=== PATIENT | male | born 1955 | race Caucasian/White ===

== ENCOUNTER 2019-02-26 12:42 | Day surgery (SDC) | payer OTHER, SELFPAY ==
[2019-02-20 15:06] VITALS: BMI 26.0
[2019-02-26] VITALS (8 sets, daily range): BP systolic 108–149; BP diastolic 69–91; PULSE 65–78; RESP 10–16; TEMP 36–36.8; O2SAT 94–98; BMI 25.6
[2019-02-26] MEDS: LACTATED RINGERS 1,000 ML 100 ML IV (13:22)
--- NOTE | 2019-02-26 14:09 | PM.HP.1 ---
History of Present Illness History of Present Illness Date Patient Seen: 02/26/19 Time Patient Seen: 14:09 Chief complaint: [id number] Narrative: The patient is a gentleman here for repair of a right inguinal hernia. It is intermittently symptomatic. Patient History Medical History Asthma (Acute) Kidney stones (Acute) Tibia/fibula fracture (Resolved ~2016) Social History marital status: household members: spouse occupational status: employed Smoking Status: Never smoker alcohol intake: never substance use type: does not use Family & Social History Social History: household members spouse Tobacco & Substance use: Smoking Status Never smoker alcohol intake never Substance Use Type does not use Meds Home Medications and Allergies Home Medications Medication Instructions Recorded Confirmed Type No Known Home Medications 11/01/18 02/26/19 History Allergies Allergy/AdvReac Type Severity Reaction Status Date / Time No Known Drug Allergies Allergy Verified 02/26/19 13:04 Review of Systems Review of Systems ROS Unobtainable: All systems reviewed & are unremarkable except as noted in HPI and below Exam Vital Signs (past 8 hours): - 02/26/19 13:06 Temperature 96.8 F L Pulse Rate 78 Respiratory Rate 15 Blood Pressure 123/76 Pulse Oximetry 98 Oxygen Delivery Method Room Air Narrative Exam Narrative: Operative no apparent distress. Lungs are clear to auscultation no rales or rhonchi heart regular rate and rhythm no murmur gallop. Abdomen is mildly protuberant soft nontender without mass right inguinal hernia reducible. No skin rashes. Alert and oriented x3. Assessment & Plan Assessment & Plan narrative: Patient with a right inguinal hernia for repair. I have discussed the operation including risks of bleeding, infection, recurrence, nerve injury which could cause chronic pain or numbness, the as difference it injury or injury to the blood supply the testicle. All questions were answered and he wished to proceed.
--- NOTE | 2019-02-26 14:12 | PM.PREOP ---
Pre-operative Note Interval Note History & Physical reviewed/Exam performed by Physician: Yes Changes to H&P: No
[2019-02-26] MEDS: CEFAZOLIN 2 GM/100 ML FROZ.PIGGY IV (14:30)
--- NOTE | 2019-02-26 14:52 | SUR.OPER ---
Supine on padded OR bed, head on pillow, arms secured on padded arm boards at <90 degrees abduction, legs uncrossed, safety belt at thigh, tape over blanket over lower legs.
[2019-02-26] MEDS: BUPIVACAINE 0.5% (PF) VIAL 30 ML INJ (15:08)
--- NOTE | 2019-02-26 16:40 | PM.OP.1 ---
Operative Date/Time/Diagnoses Date of procedure: 02/26/19 Time of procedure: 16:41 Pre-op diagnosis: Right inguinal hernia reducible Post-op diagnosis: same (Large indirect and direct hernia) Procedure & Clinicians Procedure: Repair with plug and patch technique Same procedure as scheduled: Yes Indications: Symptomatic hernia Surgeon: Gerson Mccabe Click Yes if Unassisted: Yes Anesthesia Type: General Operative Notes Findings: Large hernia sac indirect an a extremely weakened floor Closure Type: primary Specimen(s): none sent Prosthetic devices, grafts, tissues, transplants, or devices: Plug and patch Estimated Blood Loss (mL): 15 Blood products transfused: none Procedure in detail: The patient was placed supine on the operating room table and underwent general LMA anesthesia. He was prepped and draped in the usual fashion. A transverse incision was made overlying the internal ring and carried down to the level of the external oblique. The external oblique was opened parallel with its fibers through the external ring. The cord structures were elevated. The cremaster was opened proximally and search made for an indirect sac. A very large sac was identified and from surrounding structures with some difficulty. There was dense adhesions to the cord structures. Ultimately I dissected proximally and ligated it with a 2 0 silk at the level of the deep epigastric vessels. Distal portion was removed and the stump was allowed to retract. A medium plug was placed in the defect and tacked into place with interrupted 0 Ethibond suture.. The floor was examined and was found to be quite attenuated.. A patch was placed across the floor and tacked at the pubic tubercle, the posterior lamella of the anterior rectus sheath, the ilioinguinal ligament, and superior lateral to the cord. The opening was modified as necessary to prevent tight constriction of the cord. Sutures of 0 Ethibond were used to secure the mesh. The external oblique was closed with a running 3 0 Vicryl. The subcu was closed with interrupted 3 0 Vicryl. The skin was closed with a running 4 0 Vicryl subcuticular stitch and Steri-Strips. Dressing was applied, the patient was awakened, and the patient was taken to the recovery area in good condition. Complications: none Post-operative Condition: stable Disposition: PACU
[2019-02-26] MEDS: OXYCODONE/ACETAMINOPHEN 5/325 TABLET 1 TAB PO ×2 (16:55→17:29)
--- NOTE | 2019-02-26 17:56 | SUR.PHASEII ---
Pt's pain increased while in phase 2, 2nd percocet given, pt allowed to rest, now ready to go home, dressing to r groin c/d/i. vss, assisted to dress and pt ready to go.
--- NOTE | 2019-02-26 18:10 | SUR.PHASEII ---
Pt left when ready and in stable condition
== END 2019-02-26 18:10 | disposition home or self-care (01) ==
PROVIDERS: PCP Internal Medicine; Visit Provider Specialist
PROC: (CPT 49505; principal; 2019-02-26 13:45)
DX: K40.90 Unilateral inguinal hernia, without obstruction or gangrene, not specified as recurrent (principal); J45.909 Unspecified asthma, uncomplicated
CPT/HCPCS: 49505; C1781; J0690; J1100; J2405; J2704; J3010

== ENCOUNTER → 2020-04-16 09:12 | Outpatient (CLI) | payer OTHER, SELFPAY ==
--- NOTE | 2020-04-16 | DI.US.S_ITS ---
PROCEDURE: US ABDOMEN COMPLETE INDICATIONS: OTHER FECAL ABNORMALITIES. NIKITA COLORED STOOLS. TECHNIQUE: Real-time scanning was performed of the abdominal and retroperitoneal organs, with image documentation. COMPARISON: None. FINDINGS: Liver: Liver is normal in size and homogeneous in echotexture, mildly increased in echotexture consistent with fatty infiltration.. Gallbladder: Gallstones are noted within the gallbladder lumen, but the gallbladder is not abnormally wall thickened and there is no adjacent free fluid or focal tenderness during sonographic palpation. Biliary ducts: Intrahepatic bile ducts are non-dilated. Extrahepatic common hepatic bile duct caliber measures 2.8 mm but the distal common duct could not be located due to overlying bowel gas. Normal is 6-7 mm or less in diameter, or 10 mm or less post-cholecystectomy. Pancreas: Visualized portions of the pancreas are sonographically normal. Spleen: Spleen is normal in size and homogeneous in echotexture. Kidneys: Kidneys are normal in size and echotexture. Right kidney measures 10.4 cm long; left kidney measures 10.7 cm long. No hydronephrosis or nephrolithiasis. No solid masses. Incidental note is made of a small cyst at the midpole of the right kidney measuring up to 1.6 cm. Aorta: Visualized aorta is normal in caliber at less than 3 cm. Iliacs: Proximal common iliac arteries are normal in caliber at less than 2.5 cm. IVC: Intrahepatic inferior vena cava is patent. Miscellaneous: No free abdominal fluid. IMPRESSION: Mildly echogenic liver parenchyma consistent with mild fatty infiltration. Intrahepatic masses or biliary ductal distension is not seen. The common hepatic duct is normal in caliber. The distal common duct could not be seen due to bowel gas. Bowel gas also obscures clear visualization of portions of the pancreas. A definite source of change in bowel habits is not seen. Follow-up CT scanning may become necessary. Dictated by: Lázaro Mandujano M.D. on 04/16/2020 at 13:39 Approved by: Lázaro Mandujano M.D. on 04/16/2020 at 13:42
== END ==
PROVIDERS: PCP Internal Medicine; Referring Provider Internal Medicine; Visit Provider Internal Medicine
DX: R19.5 Other fecal abnormalities (principal); K76.0 Fatty (change of) liver, not elsewhere classified
CPT/HCPCS: 76700